=== PATIENT | female | born 1950 | race Caucasian/White ===

== ENCOUNTER 2020-06-15 03:04 | Emergency (ER) | payer MEDICARE, OTHER ==
[~2020-06-15 03:04] MED LIST: CYANOCOBAL1000 MCG/1 INJ; IBUPROFEN800 MG PO; IRON325 M1 PO; LORTAB 5-325 M1 EACH PO; MIRALAX17 GM PO; NAPROXEN 250 M250 MG PO; NORCO 7.5-3251 EACH PO; VITAMIN D32000 UNI1 PO
[2020-06-15] MEDS ORDERED: PREDNISONE 50 M50 MG PO (10:44)
[2020-06-15] MEDS ORDERED: EPIPEN 2-P0.3 MG/0.3 INJ (10:44)
== END 2020-06-15 11:31 | disposition home or self-care (01) ==
LOC: ER1 03:04
DX: T78.3XXA Angioneurotic edema, initial encounter (principal); E11.9 Type 2 diabetes mellitus without complications
CPT/HCPCS: 96365; 96372; 96375; 99283; J0171; J1200; J2930